=== PATIENT | female | born 1960 | race African-American/Black ===

== ENCOUNTER 2018-06-08 18:25 | Inpatient (IN) | payer MEDICARE, MEDICAID ==
[~2018-06-08] VITALS: Ht 172.7 cm; Wt 85.3 kg
[2018-06-08] MEDS ORDERED: SODIUM CHLORIDE 0.9% 1,000 ML IV ONE (18:50)
[2018-06-08] MEDS ORDERED: ONDANSETRON HCL 4MG/2ML INJ IV STA (18:50)
[2018-06-08] MEDS ORDERED: LORAZEPAM 2MG/ML CPJ ONE (18:58)
[2018-06-08] MEDS ORDERED: LORAZEPAM 2MG/ML CPJ IV ONE ×2 (19:00)
[2018-06-08] MEDS ORDERED: MORPHINE SULFATE 10 MG/ML CPJ IV ONE (19:45)
[2018-06-08] MEDS ORDERED: ONDANSETRON HCL 4MG/2ML INJ IV ONE (19:45)
[2018-06-08] MEDS ORDERED: LEVETIRACETAM 500MG PREMIX 100 ML IV ONE (19:45)
[2018-06-08 20:16] LABS: BASOPHILS % 0.3 % (0.0-2.0); EOSINOPHILS % 0.2 % (0.0-5.0); HEMOGLOBIN. 13.1 g/dL (12.0-16.0); LYMPHOCYTES % 42.2 % (20.0-50.0); MEAN CORPUSCULAR HEMOGLOBIN 31.8 pg (28.0-32.0); MEAN CORPUSCULAR VOLUME 94.9 fL (81.0-99.0); MEAN PLATELET VOLUME 10.6 fl (7.4-10.4); MONOCYTES % 13.5 % (2.0-8.0); NEUTROPHILS % 43.8 % (40.0-76.0); PLATELET 239 x1000/uL (130-400); RED BLOOD CELL COUNT 4.11 mill/uL (4.2-5.4); RED CELL DISTRIBUTION WIDTH 12.9 % (11.6-14.6)
[2018-06-08 20:19] LABS: CHLORIDE 111 mEq/L (98-107)
[2018-06-08 20:24] LABS: ETHANOL BLOOD < 10 mg/dL
[2018-06-08 20:28] LABS: CREATINE KINASE 43 IU/L (26-192)
[2018-06-08 20:35] LABS: CARBAMAZEPINE < 0.5 ug/mL (4-12); PHENOBARBITAL < 2.1 ug/mL (15.0-40.0); VALPROIC ACID < 3.0 ug/mL (50-100)
[2018-06-08 21:41] LABS: CLARITY URINE CLEAR (CLEAR); COLOR URINE YELLOW (YELLOW); KETONES URINE TRACE (NEGATIVE); LEUKOCYTE ESTERASE URINE NEGATIVE (NEGATIVE); NITRITE URINE NEGATIVE (NEGATIVE); OCCULT BLOOD URINE NEGATIVE (NEGATIVE); PH URINE 5.5 (4.5-8.0); PROTEIN URINE NEGATIVE (NEGATIVE); SPECIFIC GRAVITY URINE 1.048 (1.005-1.030)
[2018-06-08] MEDS ORDERED: POTASSIUM CHLORIDE 20MEQ/PACKET PO ONE (21:45)
[2018-06-08 21:58] LABS: *BARBITURATES SCREEN URINE NEGATIVE (NEGATIVE); *BENZODIAZEPINES SCREEN URINE NEGATIVE (NEGATIVE); *COCAINE SCREEN URINE NEGATIVE (NEGATIVE); METHADONE URINE SCREEN NEGATIVE (NEGATIVE); OPIATES URINE SCREEN NEGATIVE (NEGATIVE)
[2018-06-08 21:59] LABS: *AMPHETAMINES SCREEN URINE NEGATIVE (NEGATIVE); CANNABINOID URINE SCREEN NEGATIVE (NEGATIVE); PHENCYCLIDINE URINE SCREEN NEGATIVE (NEGATIVE)
[2018-06-09] MEDS ORDERED: IPRATROPIUM/ALBUTEROL 0.5-3(2.5)MG/3ML NEB INH PRN
[2018-06-09] MEDS ORDERED: DOCUSATE SODIUM 100MG CAPSULE PO PRN
[2018-06-09] MEDS ORDERED: ONDANSETRON HCL 4MG/2ML INJ IV PRN
[2018-06-09] MEDS ORDERED: HYDROCODONE/ACETAMINOPHEN 5/325MG TABLET PO PRN
[2018-06-09] MEDS ORDERED: ACETAMINOPHEN 325MG TABLET PO PRN
[2018-06-09] MEDS ORDERED: MAGNESIUM/ALUMINUM HYDROXIDE/SIMETHICONE 30ML UDC PO PRN
[2018-06-09] MEDS ORDERED: CLONIDINE 0.1MG TABLET PO PRN
[2018-06-09 00:19] LABS: CHLORIDE 111 mEq/L (98-107)
[2018-06-09] MEDS: SODIUM CHLORIDE 0.9% 1,000 ML IV SCH ×2 (00:28→13:59)
[2018-06-09] MEDS: LORAZEPAM 2MG/ML CPJ IV PRN ×3 (03:47→23:22)
[2018-06-09 05:53] LABS: BASOPHILS % 0.6 % (0.0-2.0); EOSINOPHILS % 0.2 % (0.0-5.0); HEMATOCRIT. 37.2 % (36.0-48.0); HEMOGLOBIN. 12.5 g/dL (12.0-16.0); MEAN CORPUSCULAR VOLUME 95.4 fL (81.0-99.0); MEAN PLATELET VOLUME 10.4 fl (7.4-10.4); MONOCYTES % 10.9 % (2.0-8.0); NEUTROPHILS % 50.3 % (40.0-76.0); PLATELET 208 x1000/uL (130-400); RED BLOOD CELL COUNT 3.89 mill/uL (4.2-5.4); RED CELL DISTRIBUTION WIDTH 12.8 % (11.6-14.6)
[2018-06-09 06:07] LABS: LDL CHOLESTEROL 85 mg/dL (5-100)
[2018-06-09 06:08] LABS: CREATINE KINASE 37 IU/L (26-192)
[2018-06-09 06:09] LABS: HDL CHOLESTEROL 81 mg/dL (40-59)
[2018-06-09 06:11] LABS: CREATINE KINASE MB FRACTION < 1.0 ng/mL (0.5-3.6)
[2018-06-09] MEDS ORDERED: LEVETIRACETAM 500MG TABLET PO SCH ×2 (09:00→21:00)
[2018-06-09] MEDS: ENOXAPARIN 40MG/0.4ML SYR SUBCUT SCH (10:00)
[2018-06-09 12:34] VITALS: BP 142/85
[2018-06-09] MEDS ORDERED: DEXTROSE 50% WATER 50ML SYRINGE IV PRN (12:45)
[2018-06-09 12:46] VITALS: BP 142/85
[2018-06-09] MEDS: BLOOD SUGAR DIAGNOSTIC STRIP TEST SCH ×3 (14:21→20:36)
[2018-06-09] MEDS: INSULIN LISPRO 100 UNITS/ML SUBCUT SCH ×3 (14:28→20:53)
[2018-06-09] MEDS ORDERED: OMEP20CA10 MT (15:31)
[2018-06-09] MEDS ORDERED: LEVE750T52 MT (15:31)
[2018-06-09 15:43] LABS: CREATINE KINASE 45 IU/L (26-192); CREATINE KINASE MB FRACTION < 1.0 ng/mL (0.5-3.6)
[2018-06-09 16:31] VITALS: BP 122/62
[2018-06-09] MEDS ORDERED: FOSPHENYTOIN SODIUM 1,000 MG in SODIUM CHLORIDE 0.9% 50 ML IJ NR (18:00)
[2018-06-09 20:38] VITALS: BP 115/52
[2018-06-09] MEDS: LEVETIRACETAM 500MG TABLET PO SCH (20:50)
[2018-06-10] VITALS (15 sets, daily range): BP systolic 112–178; BP diastolic 57–89
[2018-06-10] MEDS: SODIUM CHLORIDE 0.9% 1,000 ML IV SCH (02:37)
[2018-06-10 06:39] LABS: BASOPHILS % 0.4 % (0.0-2.0); EOSINOPHILS % 0.3 % (0.0-5.0); HEMATOCRIT. 38.3 % (36.0-48.0); HEMOGLOBIN. 12.9 g/dL (12.0-16.0); LYMPHOCYTES % 36.1 % (20.0-50.0); MEAN CORPUSCULAR HEMOGLOBIN 32.1 pg (28.0-32.0); MEAN CORPUSCULAR VOLUME 95.3 fL (81.0-99.0); MEAN PLATELET VOLUME 10.8 fl (7.4-10.4); MONOCYTES % 10.1 % (2.0-8.0); NEUTROPHILS % 53.1 % (40.0-76.0); PLATELET 234 x1000/uL (130-400); RED BLOOD CELL COUNT 4.02 mill/uL (4.2-5.4); RED CELL DISTRIBUTION WIDTH 12.7 % (11.6-14.6)
[2018-06-10 07:28] LABS: CHLORIDE 108 mEq/L (98-107)
[2018-06-10] MEDS: BLOOD SUGAR DIAGNOSTIC STRIP TEST SCH ×3 (07:30→21:00)
[2018-06-10] MEDS: INSULIN LISPRO 100 UNITS/ML SUBCUT SCH ×3 (09:04→20:59)
[2018-06-10] MEDS: LEVETIRACETAM 500MG TABLET PO SCH ×2 (09:11→20:51)
[2018-06-10] MEDS: ENOXAPARIN 40MG/0.4ML SYR SUBCUT SCH (09:12)
[2018-06-10] MEDS: LORAZEPAM 2MG/ML CPJ IV PRN (14:52)
[2018-06-10] MEDS ORDERED: METF-414 MT (15:48)
[2018-06-10] MEDS ORDERED: KEPP500 PO (15:48)
[2018-06-10] MEDS ORDERED: PHEN100C4 PO (15:48)
[2018-06-10] MEDS ORDERED: PHENYTOIN SODIUM EXTENDED 100MG CAPSULE PO SCH (21:00)
[2018-06-10] MEDS: INSULIN GLARGINE UD 100 UNITS/ML SYR SUBCUT SCH (21:00)
[2018-06-11 08:26] VITALS: BP 130/85
[2018-06-11] MEDS: BLOOD SUGAR DIAGNOSTIC STRIP TEST SCH ×2 (08:27→11:57)
[2018-06-11] MEDS: INSULIN LISPRO 100 UNITS/ML SUBCUT SCH ×2 (08:32→12:01)
[2018-06-11] MEDS: LEVETIRACETAM 500MG TABLET PO SCH (08:32)
[2018-06-11 11:01] VITALS: BP 130/85
[2018-06-11] MEDS: INSULIN GLARGINE UD 100 UNITS/ML SYR SUBCUT SCH (12:01)
[2018-06-11] MEDS ORDERED: DEXTL MT (13:37)
== END 2018-06-11 12:18 | disposition home or self-care (01) | DRG 101 ==
LOC: ER 18:25 → 6WST 06-09 08:28 → EDBEDREQ 06-09 08:30 → EDBEDREQTM 06-09 08:30 → CANRESERV 06-09 09:59 → ENRESERV 06-09 10:09 → 5EST 06-09 23:45
PROVIDERS: ADMIT Internal Medicine; ATTEND Internal Medicine
PROC: 4A10X4Z Monitoring of Central Nervous Electrical Activity, External Approach (ICD-10-PCS; principal; 2018-06-10)
DX: G40.909 Epilepsy, unspecified, not intractable, without status epilepticus (principal); I10 Essential (primary) hypertension; E11.65 Type 2 diabetes mellitus with hyperglycemia; E78.00 Pure hypercholesterolemia, unspecified; E78.5 Hyperlipidemia, unspecified; Z91.14 Patient's other noncompliance with medication regimen; Z79.4 Long term (current) use of insulin; Z91.19 Patient's noncompliance with other medical treatment and regimen; Z88.6 Allergy status to analgesic agent; Z88.0 Allergy status to penicillin
CPT/HCPCS: 36415; 70551; 71045; 80048; 80061; 80156; 80165; 80184; 80185; 80305; 82550; 82553; 82962; 83036; 83735; 84443; 84484; 93005; 93970; 96365; 96375; 99285; C1893; G0482; J1650; J1815; J1953; J2060; J2270; J2405; J7030; J7620

== ENCOUNTER 2018-07-14 12:54 | Emergency (ER) | payer MEDICARE, MEDICAID ==
[~2018-07-14] VITALS: Ht 162.6 cm; Wt 68.5 kg
[~2018-07-14 12:54] MED LIST: DEXTL MT; KEPP500 PO; METF-414 MT; OMEP20CA10 MT; PHEN100C4 PO
[2018-07-14] MEDS ORDERED: SODIUM CHLORIDE 0.9% 1,000 ML IV ONE ×2 (13:05→15:00)
[2018-07-14] MEDS ORDERED: LEVETIRACETAM 1000MG/100ML 100 ML IV ONE (13:15)
[2018-07-14 14:25] LABS: BASOPHILS % 0.5 % (0.0-2.0); HEMATOCRIT. 50.1 % (36.0-48.0); HEMOGLOBIN. 16.5 g/dL (12.0-16.0); LYMPHOCYTES % 20.5 % (20.0-50.0); MEAN CORPUSCULAR HEMOGLOBIN 31.1 pg (28.0-32.0); MEAN CORPUSCULAR VOLUME 94.1 fL (81.0-99.0); MONOCYTES % 9.4 % (2.0-8.0); NEUTROPHILS % 69.6 % (40.0-76.0); PLATELET 213 x1000/uL (130-400); RED BLOOD CELL COUNT 5.32 mill/uL (4.2-5.4); RED CELL DISTRIBUTION WIDTH 12.1 % (11.6-14.6)
[2018-07-14 14:29] LABS: CHLORIDE 101 mEq/L (98-107)
[2018-07-14 14:32] LABS: ETHANOL BLOOD < 10 mg/dL
[2018-07-14] MEDS ORDERED: SODIUM CHLORIDE 0.9% 1,000 ML IV NR (16:00)
[2018-07-14 18:30] VITALS: BP 125/75
[2018-07-14 18:48] LABS: CLARITY URINE CLEAR (CLEAR); COLOR URINE YELLOW (YELLOW); KETONES URINE 3+ (NEGATIVE); LEUKOCYTE ESTERASE URINE NEGATIVE (NEGATIVE); NITRITE URINE NEGATIVE (NEGATIVE); OCCULT BLOOD URINE NEGATIVE (NEGATIVE); PH URINE 5.5 (4.5-8.0); PROTEIN URINE NEGATIVE (NEGATIVE); SPECIFIC GRAVITY URINE 1.044 (1.005-1.030); UROBILINOGEN URINE 0.2 E.U./dL (0.2-1.0)
[2018-07-14 19:00] LABS: *AMPHETAMINES SCREEN URINE NEGATIVE (NEGATIVE); *BARBITURATES SCREEN URINE NEGATIVE (NEGATIVE); *BENZODIAZEPINES SCREEN URINE NEGATIVE (NEGATIVE); *COCAINE SCREEN URINE NEGATIVE (NEGATIVE)
[2018-07-14 19:01] LABS: CANNABINOID URINE SCREEN NEGATIVE (NEGATIVE); METHADONE URINE SCREEN NEGATIVE (NEGATIVE); OPIATES URINE SCREEN NEGATIVE (NEGATIVE); PHENCYCLIDINE URINE SCREEN NEGATIVE (NEGATIVE)
== END 2018-07-14 19:17 | disposition home or self-care (01) ==
LOC: ER 13:34
DX: R56.9 Unspecified convulsions (principal); J06.9 Acute upper respiratory infection, unspecified; R51 Headache; Z79.899 Other long term (current) drug therapy; Z88.6 Allergy status to analgesic agent; Z79.84 Long term (current) use of oral hypoglycemic drugs; Z59.0 Homelessness
CPT/HCPCS: 36415; 70450; 80053; 80305; 81003; 82962; 85025; 96365; 99284; G0482; J1953; J7030

== ENCOUNTER 2020-07-02 09:26 | Inpatient (IN) | payer MEDICARE, MEDICAID ==
[~2020-07-02] VITALS: Ht 162.6 cm; Wt 84.4 kg
[~2020-07-02 09:26] MED LIST changes: -OMEP20CA10 MT; +OMEP20CA14 MT
[2020-07-02] MEDS ORDERED: SODIUM CHLORIDE 0.9% 1,000 ML IV ONE ×2 (10:30)
[2020-07-02 10:39] LABS: CLARITY URINE CLEAR (CLEAR); COLOR URINE YELLOW (YELLOW); KETONES URINE 1+ (NEGATIVE); LEUKOCYTE ESTERASE URINE NEGATIVE (NEGATIVE); NITRITE URINE NEGATIVE (NEGATIVE); OCCULT BLOOD URINE NEGATIVE (NEGATIVE); PH URINE 5.5 (4.5-8.0); PROTEIN URINE NEGATIVE (NEGATIVE); SPECIFIC GRAVITY URINE 1.028 (1.005-1.030); UROBILINOGEN URINE 0.2 E.U./dL (0.2-1.0)
[2020-07-02 10:52] LABS: BASOPHILS % 1.1 % (0.0-2.0); CHLORIDE 103 mEq/L (98-107); EOSINOPHILS % 0.1 % (0.0-5.0); HEMATOCRIT. 44.6 % (36.0-48.0); LYMPHOCYTES % 34.6 % (20.0-50.0); MEAN CORPUSCULAR HEMOGLOBIN 30.6 pg (28.0-32.0); MEAN CORPUSCULAR VOLUME 91.1 fL (81.0-99.0); MEAN PLATELET VOLUME 11.6 fl (7.4-10.4); NEUTROPHILS % 53.2 % (40.0-76.0); PLATELET 218 x1000/uL (130-400); RED CELL DISTRIBUTION WIDTH 12.5 % (11.6-14.6)
[2020-07-02 10:54] LABS: PROTHROMBIN TIME 10.6 sec (9.6-11.0)
[2020-07-02 11:02] LABS: BETA HYDROXYBUTYRATE 0.3 mMol/L (0.0-0.3)
[2020-07-02] MEDS ORDERED: ONDANSETRON HCL 4MG/2ML INJ IV STA (12:06)
[2020-07-02] MEDS ORDERED: MORPHINE SULFATE 4 MG/ML CPJ (NOT FOR IM USE) IV STA (12:06)
[2020-07-02] MEDS ORDERED: DEXTROSE 5% WATER 1,000 ML IV ONE (12:30)
[2020-07-02] MEDS ORDERED: LORAZEPAM 0.5MG TABLET PO PRN (19:15)
[2020-07-02] MEDS ORDERED: IPRATROPIUM/ALBUTEROL 0.5-3(2.5)MG/3ML NEB HHN PRN (19:15)
[2020-07-02] MEDS ORDERED: CLONIDINE 0.1MG TABLET PO PRN (19:15)
[2020-07-02] MEDS ORDERED: ACETAMINOPHEN 325MG TABLET PO PRN (19:15)
[2020-07-02] MEDS ORDERED: DOCUSATE SODIUM 100MG CAPSULE PO PRN (19:15)
[2020-07-02] MEDS: SODIUM CHLORIDE 0.9% 1,000 ML IV SCH (19:30)
[2020-07-02 22:15] VITALS: BP 134/62
[2020-07-02] MEDS: HYDROCODONE/ACETAMINOPHEN 5/325MG TABLET PO PRN (23:45)
[2020-07-03 04:00] VITALS: BP 133/69
[2020-07-03] MEDS: HYDROCODONE/ACETAMINOPHEN 5/325MG TABLET PO PRN ×2 (05:36→12:08)
[2020-07-03] MEDS: SODIUM CHLORIDE 0.9% 1,000 ML IV SCH ×2 (05:44→22:13)
[2020-07-03] MEDS ORDERED: DEXTROSE 50% WATER 50ML SYRINGE IV PRN (07:15)
[2020-07-03] MEDS: INSULIN LISPRO 100 UNITS/ML SUBCUT SCH ×4 (07:22→22:15)
[2020-07-03] MEDS: BLOOD SUGAR DIAGNOSTIC STRIP TEST SCH ×4 (07:27→21:00)
[2020-07-03 07:57] LABS: CHLORIDE 106 mEq/L (98-107)
[2020-07-03 07:59] LABS: BASOPHILS % 0.4 % (0.0-2.0); HEMATOCRIT. 42.1 % (36.0-48.0); HEMOGLOBIN. 14.2 g/dL (12.0-16.0); LYMPHOCYTES % 34.8 % (20.0-50.0); MEAN CORPUSCULAR HEMOGLOBIN 30.7 pg (28.0-32.0); MEAN CORPUSCULAR VOLUME 91.2 fL (81.0-99.0); MEAN PLATELET VOLUME 12.2 fl (7.4-10.4); MONOCYTES % 10.8 % (2.0-8.0); PLATELET 205 x1000/uL (130-400); RED BLOOD CELL COUNT 4.61 mill/uL (4.2-5.4); RED CELL DISTRIBUTION WIDTH 12.4 % (11.6-14.6)
[2020-07-03 08:00] VITALS: BP 123/63
[2020-07-03] MEDS ORDERED: LEVETIRACETAM 500MG TABLET PO SCH (08:00)
[2020-07-03 08:10] LABS: AMYLASE 115 IU/L (25-115)
[2020-07-03] MEDS ORDERED: KCL 20MEQ/100ML PREMIX 100 ML IV ONE (09:00)
[2020-07-03] MEDS ORDERED: KCL 20MEQ/100ML PREMIX 100 ML IV SCH (09:45)
[2020-07-03] MEDS: KCL 20MEQ/100ML PREMIX 100 ML IV SCH ×2 (11:00→12:07)
[2020-07-03 12:00] VITALS: BP 115/59
[2020-07-03] MEDS ORDERED: POTASSIUM CHLORIDE 20MEQ TABLET SR PO NR (13:15)
[2020-07-03 16:00] VITALS: BP 137/70
[2020-07-03] MEDS: OMEPRAZOLE 20MG CAPSULE EXTENDED RELEASE PO SCH (17:30)
[2020-07-03 20:00] VITALS: BP 127/72
[2020-07-03] MEDS: PHENYTOIN SODIUM EXTENDED 100MG CAPSULE PO SCH ×2 (21:00→22:12)
[2020-07-03] MEDS: LEVETIRACETAM 250MG TABLET PO SCH (22:13)
[2020-07-03] MEDS ORDERED: VENL150C52 PO (22:33)
[2020-07-04] VITALS: BP 129/74
[2020-07-04 04:00] VITALS: BP_SYST 101; BP_SYST 118; BP_SYST 125; BP_DIAS 62; BP_DIAS 67; BP_DIAS 72
[2020-07-04] MEDS: SODIUM CHLORIDE 0.9% 1,000 ML IV SCH ×2 (04:51→15:58)
[2020-07-04] MEDS: HYDROCODONE/ACETAMINOPHEN 5/325MG TABLET PO PRN ×2 (06:57→21:15)
[2020-07-04] MEDS: BLOOD SUGAR DIAGNOSTIC STRIP TEST SCH ×4 (06:57→21:00)
[2020-07-04] MEDS: INSULIN LISPRO 100 UNITS/ML SUBCUT SCH ×4 (07:01→21:36)
[2020-07-04 07:35] LABS: BASOPHILS % 0.5 % (0.0-2.0); HEMATOCRIT. 42.3 % (36.0-48.0); HEMOGLOBIN. 13.8 g/dL (12.0-16.0); LYMPHOCYTES % 39.2 % (20.0-50.0); MEAN CORPUSCULAR HEMOGLOBIN 30.3 pg (28.0-32.0); MEAN PLATELET VOLUME 12.6 fl (7.4-10.4); MONOCYTES % 10.7 % (2.0-8.0); NEUTROPHILS % 49.6 % (40.0-76.0); PLATELET 186 x1000/uL (130-400); RED BLOOD CELL COUNT 4.55 mill/uL (4.2-5.4); RED CELL DISTRIBUTION WIDTH 12.4 % (11.6-14.6)
[2020-07-04 07:36] LABS: CHLORIDE 108 mEq/L (98-107)
[2020-07-04 07:44] LABS: LDL CHOLESTEROL 111 mg/dL (5-100)
[2020-07-04 07:46] LABS: HDL CHOLESTEROL 66 mg/dL (40-59)
[2020-07-04 08:00] VITALS: BP 120/86
[2020-07-04] MEDS: OMEPRAZOLE 20MG CAPSULE EXTENDED RELEASE PO SCH (09:38)
[2020-07-04] MEDS: LEVETIRACETAM 250MG TABLET PO SCH ×2 (09:38→21:00)
[2020-07-04] MEDS: VENLAFAXINE HCL 37.5MG SR CAPSULE 24HR PO SCH (17:50)
[2020-07-04 20:00] VITALS: BP 121/71
[2020-07-04] MEDS: PHENYTOIN SODIUM EXTENDED 100MG CAPSULE PO SCH (21:00)
[2020-07-04] MEDS: ONDANSETRON HCL 4MG/2ML INJ IV PRN (21:15)
[2020-07-05] VITALS: BP 136/68
[2020-07-05] MEDS: SODIUM CHLORIDE 0.9% 1,000 ML IV SCH ×2 (03:05→11:12)
[2020-07-05 04:00] VITALS: BP 134/61
[2020-07-05] MEDS: BLOOD SUGAR DIAGNOSTIC STRIP TEST SCH ×4 (06:45→21:05)
[2020-07-05] MEDS: INSULIN LISPRO 100 UNITS/ML SUBCUT SCH ×5 (07:15→21:05)
[2020-07-05 08:00] VITALS: BP 126/68
[2020-07-05] MEDS: OMEPRAZOLE 20MG CAPSULE EXTENDED RELEASE PO SCH (09:16)
[2020-07-05] MEDS: VENLAFAXINE HCL 37.5MG SR CAPSULE 24HR PO SCH (09:16)
[2020-07-05] MEDS: LEVETIRACETAM 250MG TABLET PO SCH ×2 (09:16→20:37)
[2020-07-05 12:00] VITALS: BP 128/80
[2020-07-05] MEDS: ONDANSETRON HCL 4MG/2ML INJ IV PRN (13:46)
[2020-07-05] MEDS: HYDROCODONE/ACETAMINOPHEN 5/325MG TABLET PO PRN (13:47)
[2020-07-05 16:00] VITALS: BP_SYST 113; BP_SYST 130; BP_SYST 136; BP_DIAS 70; BP_DIAS 79; BP_DIAS 83
[2020-07-05] MEDS ORDERED: PHENYTOIN SODIUM 1,000 MG in SODIUM CHLORIDE 0.9% 80 ML IV NR (18:30)
[2020-07-05 20:00] VITALS: BP 138/64
[2020-07-05] MEDS: PHENYTOIN SODIUM EXTENDED 100MG CAPSULE PO SCH (20:37)
[2020-07-06] VITALS: BP 127/64
[2020-07-06 04:00] VITALS: BP 128/66
[2020-07-06] MEDS: BLOOD SUGAR DIAGNOSTIC STRIP TEST SCH ×3 (05:50→17:18)
[2020-07-06] MEDS: INSULIN LISPRO 100 UNITS/ML SUBCUT SCH ×3 (05:57→17:22)
[2020-07-06 06:24] LABS: BASOPHILS % 0.4 % (0.0-2.0); HEMATOCRIT. 41.6 % (36.0-48.0); HEMOGLOBIN. 14.3 g/dL (12.0-16.0); LYMPHOCYTES % 37.3 % (20.0-50.0); MEAN CORPUSCULAR HEMOGLOBIN 31.4 pg (28.0-32.0); MEAN CORPUSCULAR VOLUME 91.3 fL (81.0-99.0); MEAN PLATELET VOLUME 11.9 fl (7.4-10.4); MONOCYTES % 11.4 % (2.0-8.0); NEUTROPHILS % 50.9 % (40.0-76.0); PLATELET 208 x1000/uL (130-400); RED BLOOD CELL COUNT 4.56 mill/uL (4.2-5.4); RED CELL DISTRIBUTION WIDTH 12.1 % (11.6-14.6)
[2020-07-06 06:32] LABS: CHLORIDE 107 mEq/L (98-107)
[2020-07-06 08:00] VITALS: BP 108/53
[2020-07-06] MEDS: VENLAFAXINE HCL 37.5MG SR CAPSULE 24HR PO SCH (08:54)
[2020-07-06] MEDS: LEVETIRACETAM 250MG TABLET PO SCH (08:55)
[2020-07-06] MEDS: OMEPRAZOLE 20MG CAPSULE EXTENDED RELEASE PO SCH (08:55)
[2020-07-06] MEDS: HYDROCODONE/ACETAMINOPHEN 5/325MG TABLET PO PRN (08:56)
[2020-07-06 12:00] VITALS: BP 133/62
[2020-07-06 16:00] VITALS: BP 131/84
[2020-07-06 16:23] VITALS: BP 133/82
== END 2020-07-06 17:58 | disposition home or self-care (01) | DRG 73 ==
LOC: ER 09:45 → 6EST 14:25 → EDBEDREQ 14:35 → EDBEDREQSVC 14:35 → EDBEDREQTM 14:35 → ENRESERV 19:47 → 5WST 07-03 19:00
PROVIDERS: ADMIT Internal Medicine; ATTEND Internal Medicine
DX: G90.8 Other disorders of autonomic nervous system (principal); K85.90 Acute pancreatitis without necrosis or infection, unspecified; E11.65 Type 2 diabetes mellitus with hyperglycemia; E87.6 Hypokalemia; E66.9 Obesity, unspecified; F41.9 Anxiety disorder, unspecified; G40.909 Epilepsy, unspecified, not intractable, without status epilepticus; G89.29 Other chronic pain; I10 Essential (primary) hypertension; J45.909 Unspecified asthma, uncomplicated; K21.9 Gastro-esophageal reflux disease without esophagitis; M47.812 Spondylosis without myelopathy or radiculopathy, cervical region; M50.21 Other cervical disc displacement, high cervical region; M48.02 Spinal stenosis, cervical region; R26.89 Other abnormalities of gait and mobility; R20.0 Anesthesia of skin; Z90.49 Acquired absence of other specified parts of digestive tract; Z90.710 Acquired absence of both cervix and uterus; Z88.8 Allergy status to other drugs, medicaments and biological substances; Z79.84 Long term (current) use of oral hypoglycemic drugs; Z79.899 Other long term (current) drug therapy; Z68.31 Body mass index [BMI] 31.0-31.9, adult; Z91.14 Patient's other noncompliance with medication regimen
CPT/HCPCS: 36415; 70551; 71045; 72050; 72141; 72148; 76700; 80048; 80053; 80061; 80185; 80320; 81003; 82010; 82150; 82542; 82962; 83036; 83605; 84443; 84484; 85025; 86850; 86900; 93005; 93306; 93880; 97116; 97162; 99285; J1165; J1815; J2270; J2405; J3480; J7030; J7050; J7070; G0480

== ENCOUNTER 2021-09-29 09:24 | Inpatient (IN) | payer MEDICARE ==
[~2021-09-29] VITALS: Ht 157.5 cm; Wt 78.0 kg
[~2021-09-29 09:24] MED LIST changes: +VENL150C52 PO
[2021-09-29 09:57] LABS: BASOPHILS % 0.6 % (0.0-2.0); HEMATOCRIT. 45.6 % (36.0-48.0); HEMOGLOBIN. 15.3 g/dL (12.0-16.0); LYMPHOCYTES % 7.8 % (20.0-50.0); MEAN CORPUSCULAR HEMOGLOBIN 31.1 pg (28.0-32.0); MEAN CORPUSCULAR VOLUME 92.6 fL (81.0-99.0); NEUTROPHILS % 77.6 % (40.0-76.0); PLATELET 217 x1000/uL (130-400); RED BLOOD CELL COUNT 4.92 mill/uL (4.2-5.4); RED CELL DISTRIBUTION WIDTH 12.8 % (11.6-14.6)
[2021-09-29 10:07] LABS: CHLORIDE 103 mEq/L (98-107)
[2021-09-29 10:10] LABS: ETHANOL BLOOD < 10 mg/dL
[2021-09-29] MEDS ORDERED: FAMOTIDINE 20MG/2ML VIAL IV STA (11:50)
[2021-09-29] MEDS ORDERED: SODIUM CHLORIDE 0.9% 1,000 ML IV ONE (12:00)
[2021-09-29 12:38] LABS: *AMPHETAMINES SCREEN URINE NEGATIVE (NEGATIVE); *BARBITURATES SCREEN URINE NEGATIVE (NEGATIVE); *BENZODIAZEPINES SCREEN URINE NEGATIVE (NEGATIVE); *COCAINE SCREEN URINE NEGATIVE (NEGATIVE)
[2021-09-29 12:39] LABS: CANNABINOID URINE SCREEN PRESUMTIVE POSITIVE (NEGATIVE); METHADONE URINE SCREEN NEGATIVE (NEGATIVE); OPIATES URINE SCREEN NEGATIVE (NEGATIVE); PHENCYCLIDINE URINE SCREEN PRESUMTIVE POSITIVE (NEGATIVE)
[2021-09-29 17:00] VITALS: BP 156/75
[2021-09-29 20:00] VITALS: BP 152/65
[2021-09-29] MEDS ORDERED: NALOXONE HCL 0.4MG/ML VIAL IV PRN (20:45)
[2021-09-29 21:00] VITALS: BP 142/67
[2021-09-29] MEDS ORDERED: DEXTROSE 50% WATER 50ML SYRINGE IV PRN (21:30)
[2021-09-29] MEDS ORDERED: GUAIFENESIN 200MG/10ML SUGAR FREE UDC PO PRN (21:30)
[2021-09-29] MEDS: BLOOD SUGAR DIAGNOSTIC STRIP TEST SCH (21:43)
[2021-09-29] MEDS: FAMOTIDINE 20MG/2ML VIAL IV SCH (21:44)
[2021-09-29] MEDS: LEVETIRACETAM 500MG TABLET PO SCH (21:44)
[2021-09-29] MEDS: MORPHINE SULFATE 2 MG/ML CPJ (NOT FOR IM USE) IV PRN (21:46)
[2021-09-29] MEDS: INSULIN LISPRO 100 UNITS/ML SUBCUT SCH (21:46)
[2021-09-29] MEDS: SODIUM CHLORIDE 0.45% 1,000 ML IV SCH (21:47)
[2021-09-29] MEDS: ACETAMINOPHEN 325MG TABLET PO PRN (23:44)
[2021-09-29 23:45] VITALS: BP 140/60
[2021-09-29] MEDS ORDERED: ACETAMINOPHEN 325MG TABLET PO PRN (23:45)
[2021-09-30 04:00] VITALS: BP 127/67
[2021-09-30] MEDS: BLOOD SUGAR DIAGNOSTIC STRIP TEST SCH ×4 (05:41→21:07)
[2021-09-30] MEDS: SODIUM CHLORIDE 0.45% 1,000 ML IV SCH (05:41)
[2021-09-30] MEDS: FAMOTIDINE 20MG/2ML VIAL IV SCH ×2 (07:50→21:06)
[2021-09-30] MEDS: LEVETIRACETAM 500MG TABLET PO SCH ×2 (07:50→21:05)
[2021-09-30] MEDS: INSULIN LISPRO 100 UNITS/ML SUBCUT SCH ×4 (07:51→21:07)
[2021-09-30 08:00] VITALS: BP 110/55
[2021-09-30 11:56] VITALS: BP 111/63
[2021-09-30] MEDS: MORPHINE SULFATE 2 MG/ML CPJ (NOT FOR IM USE) IV PRN ×2 (12:36→22:09)
[2021-09-30 12:56] LABS: HEMOGLOBIN. 13.9 g/dL (12.0-16.0); MEAN CORPUSCULAR HEMOGLOBIN 31.3 pg (28.0-32.0); MEAN CORPUSCULAR VOLUME 92.3 fL (81.0-99.0); MEAN PLATELET VOLUME 11.9 fl (7.4-10.4); PLATELET 188 x1000/uL (130-400); RED BLOOD CELL COUNT 4.44 mill/uL (4.2-5.4); RED CELL DISTRIBUTION WIDTH 12.6 % (11.6-14.6)
[2021-09-30 13:04] LABS: CHLORIDE 109 mEq/L (98-107)
[2021-09-30 14:01] LABS: PLATELET ESTIMATE NORMAL
[2021-09-30] MEDS ORDERED: POTASSIUM CHLORIDE 20MEQ TABLET SR PO NR (16:00)
[2021-09-30 16:50] VITALS: BP 95/59
[2021-09-30] MEDS: ACETAMINOPHEN 325MG TABLET PO PRN (16:57)
[2021-09-30 20:00] VITALS: BP 105/51
[2021-09-30] MEDS: LEVETIRACETAM 250MG TABLET PO SCH (21:05)
[2021-10-01] VITALS: BP 134/69
[2021-10-01] MEDS: ACETAMINOPHEN 325MG TABLET PO PRN (01:42)
[2021-10-01 04:00] VITALS: BP 131/63
[2021-10-01] MEDS: BLOOD SUGAR DIAGNOSTIC STRIP TEST SCH (06:16)
[2021-10-01 08:00] VITALS: BP 117/54
[2021-10-01] MEDS: LEVETIRACETAM 500MG TABLET PO SCH (08:04)
[2021-10-01] MEDS: LEVETIRACETAM 250MG TABLET PO SCH (08:04)
[2021-10-01] MEDS: INSULIN LISPRO 100 UNITS/ML SUBCUT SCH (08:06)
[2021-10-01] MEDS ORDERED: FAMOTIDINE 20MG TABLET PO SCH (09:00)
[2021-10-01 09:26] VITALS: BP 109/49
== END 2021-10-01 10:45 | disposition home or self-care (01) | DRG 73 ==
LOC: ER 09:38 → 8WST 13:53 → EDBEDREQ 13:58 → EDBEDREQTM 13:58 → ENRESERV 15:36 → 7WST 20:22
PROVIDERS: ADMIT Family Medicine; ATTEND Family Medicine
DX: G90.9 Disorder of the autonomic nervous system, unspecified (principal); U07.1 COVID-19; E86.0 Dehydration; F41.9 Anxiety disorder, unspecified; I10 Essential (primary) hypertension; J45.909 Unspecified asthma, uncomplicated; G35 Multiple sclerosis; K21.9 Gastro-esophageal reflux disease without esophagitis; F32.A Depression, unspecified; G40.909 Epilepsy, unspecified, not intractable, without status epilepticus; R19.7 Diarrhea, unspecified; E11.9 Type 2 diabetes mellitus without complications; Z82.49 Family history of ischemic heart disease and other diseases of the circulatory system; Z90.710 Acquired absence of both cervix and uterus; Z79.899 Other long term (current) drug therapy; G31.9 Degenerative disease of nervous system, unspecified
CPT/HCPCS: 36415; 71045; 76705; 80053; 80185; 80305; 80320; 82962; 83880; 84484; 85025; 87015; 87045; 87426; 87427; 87449; 93005; 99285; J1815; J2270; J3490; J7030; G0480

== ENCOUNTER 2022-03-09 19:36 | Emergency (ER) | payer MEDICARE, MEDICAID ==
[~2022-03-09] VITALS: Ht 167.6 cm; Wt 75.0 kg
[~2022-03-09 19:36] MED LIST changes: +INSU300I SQ; +SEMA2PEN SQ
[2022-03-09] MEDS ORDERED: SODIUM CHLORIDE 0.9% 1,000 ML IV ONE (21:30)
[2022-03-09 22:49] LABS: BASOPHILS % 0.5 % (0.0-2.0); HEMATOCRIT. 47.9 % (36.0-48.0); LYMPHOCYTES % 37.8 % (20.0-50.0); MEAN CORPUSCULAR VOLUME 92.9 fL (81.0-99.0); MEAN PLATELET VOLUME 10.4 fl (7.4-10.4); MONOCYTES % 8.2 % (2.0-8.0); NEUTROPHILS % 53.5 % (40.0-76.0); PLATELET 211 x1000/uL (130-400); RED BLOOD CELL COUNT 5.16 mill/uL (4.2-5.4); RED CELL DISTRIBUTION WIDTH 13.7 % (11.6-14.6)
[2022-03-09 22:57] LABS: CLARITY URINE CLEAR (CLEAR); COLOR URINE YELLOW (YELLOW); KETONES URINE 1+ (NEGATIVE); LEUKOCYTE ESTERASE URINE NEGATIVE (NEGATIVE); NITRITE URINE NEGATIVE (NEGATIVE); OCCULT BLOOD URINE NEGATIVE (NEGATIVE); PH URINE 5.5 (4.5-8.0); PROTEIN URINE NEGATIVE (NEGATIVE); SPECIFIC GRAVITY URINE 1.036 (1.005-1.030); UROBILINOGEN URINE 0.2 E.U./dL (0.2-1.0)
[2022-03-10 02:12] LABS: CHLORIDE 103 mEq/L (98-107)
[2022-03-10 02:22] LABS: BETA HYDROXYBUTYRATE 1.2 mMol/L (0.0-0.3)
[2022-03-10 03:25] VITALS: BP 120/63
== END 2022-03-10 03:32 | disposition left against medical advice (07) ==
LOC: ER 19:36 → CANBEDREQ 03-10 11:26
DX: R56.9 Unspecified convulsions (principal); F41.9 Anxiety disorder, unspecified; J45.909 Unspecified asthma, uncomplicated; E11.9 Type 2 diabetes mellitus without complications; I10 Essential (primary) hypertension; Z90.710 Acquired absence of both cervix and uterus
CPT/HCPCS: 36415; 70450; 71045; 80053; 81003; 82010; 82962; 83690; 83930; 84484; 85025; 93005; 96360; 96361; 99285; J7030

== ENCOUNTER 2023-05-20 13:02 | Emergency (ER) | payer OTHER, MEDICAID ==
[~2023-05-20] VITALS: Ht 167.6 cm; Wt 100.0 kg
[2023-05-20 13:15] VITALS: BP 135/86; RESP 18; TEMP 98.4; O2SAT 97
[2023-05-20 13:17] VITALS: PULSE 103
[2023-05-20] MEDS ORDERED: ACET-2708 MT (16:00)
== END 2023-05-20 16:43 | disposition home or self-care (01) ==
LOC: ER 13:02
DX: M79.605 Pain in left leg (principal); F41.9 Anxiety disorder, unspecified; J45.909 Unspecified asthma, uncomplicated; E11.9 Type 2 diabetes mellitus without complications; I10 Essential (primary) hypertension; Z90.710 Acquired absence of both cervix and uterus
CPT/HCPCS: 93971; 99284

== ENCOUNTER 2024-04-15 14:45 | Emergency (ER) | payer MEDICAID ==
[~2024-04-15] VITALS: Ht 170.2 cm; Wt 75.0 kg
[~2024-04-15 14:45] MED LIST changes: +AMLO5TAB88 MT; +ATOR20TA65 PO; +CYCL10TA21 PO; -DEXTL MT; +EMPA25TA PO; +GABA100C PO; +GLIP10TA10 PO; +HYDR-4009 PO; -INSU300I SQ; +KEPP500 MT; -KEPP500 PO; +LOSA25TA26 MT; +MAGN200T4 MT; -METF-414 MT; -OMEP20CA14 MT; +PANT40TA51 PO; -PHEN100C4 PO; -SEMA2PEN SQ
[2024-04-15 14:47] VITALS: O2SAT 99
[2024-04-15 16:16] LABS: BASOPHILS % 1.1 % (0.0-2.0); EOSINOPHILS % 0.1 % (0.0-5.0); HEMATOCRIT. 38.2 % (36.0-48.0); HEMOGLOBIN. 12.9 g/dL (12.0-16.0); LYMPHOCYTES % 24.3 % (20.0-50.0); MEAN CORPUSCULAR HEMOGLOBIN 32.2 pg (28.0-32.0); MEAN CORPUSCULAR HGB CONC 33.8 g/dL (31.0-37.0); MEAN CORPUSCULAR VOLUME 95.2 fL (81.0-99.0); MEAN PLATELET VOLUME 9.7 fl (7.4-10.4); MONOCYTES % 12.5 % (2.0-8.0); PLATELET 375 x1000/uL (130-400); RED BLOOD CELL COUNT 4.01 mill/uL (4.2-5.4); RED CELL DISTRIBUTION WIDTH 12.6 % (11.6-14.6); WHITE BLOOD COUNT 7.9 x1000/uL (4.5-11.0)
[2024-04-15 16:19] LABS: CHLORIDE 104 mEq/L (98-107); SODIUM 138 mEq/L (136-145)
[2024-04-15 16:20] LABS: CALCIUM 9.3 mg/dL (8.7-10.4); CARBON DIOXIDE 29 mEq/L (21-32)
[2024-04-15 16:25] LABS: CREATININE 0.7 mg/dL (0.6-1.0); GLUCOSE 232 mg/dL (70-105); PROTHROMBIN TIME 10.7 sec (9.6-11.0); UREA NITROGEN BLOOD 17 mg/dL (9-23)
[2024-04-15 16:32] LABS: ETHANOL BLOOD < 10 mg/dL (<10)
[2024-04-15 16:39] LABS: CLARITY URINE CLOUDY (CLEAR); COLOR URINE YELLOW (YELLOW); GLUCOSE URINE 1+ (NEGATIVE); KETONES URINE NEGATIVE (NEGATIVE); LEUKOCYTE ESTERASE URINE 2+ (NEGATIVE); NITRITE URINE NEGATIVE (NEGATIVE); OCCULT BLOOD URINE NEGATIVE (NEGATIVE); PH URINE 6.5 (4.5-8.0); PROTEIN URINE NEGATIVE (NEGATIVE); SPECIFIC GRAVITY URINE 1.029 (1.005-1.030)
[2024-04-15 16:47] LABS: *AMPHETAMINES SCREEN URINE NEGATIVE (NEGATIVE); *BARBITURATES SCREEN URINE NEGATIVE (NEGATIVE); *BENZODIAZEPINES SCREEN URINE NEGATIVE (NEGATIVE); *COCAINE SCREEN URINE NEGATIVE (NEGATIVE); CANNABINOID URINE SCREEN PRESUMPTIVE POSITIVE (NEGATIVE); ECSTASY MDMA SCREEN URINE NEGATIVE (NEGATIVE); METHADONE URINE SCREEN NEGATIVE (NEGATIVE); OPIATES URINE SCREEN NEGATIVE (NEGATIVE); PHENCYCLIDINE URINE SCREEN NEGATIVE (NEGATIVE)
[2024-04-15] MEDS: HYDROCODONE/ACETAMINOPHEN 5/325MG TABLET PO ONE (17:00)
[2024-04-15 17:30] VITALS: TEMP 36.66960; O2SAT 97
[2024-04-15 17:33] LABS: BACTERIA URINE TRACE; RBC URINE NONE SEEN /hpf (0-2); SQUAMOUS EPITHELIAL CELL URINE FEW /lpf (RARE/1+); YEAST URINE 1+
[2024-04-15 18:15] VITALS: BP 151/61; PULSE 67; RESP 15; TEMP 98
[2024-04-15] MEDS ORDERED: CEFP100T8 MT (19:30)
[2024-04-15] MEDS ORDERED: FLUCONAZOLE 100MG TABLET PO ONE (19:30)
[2024-04-15] MEDS: CEFTRIAXONE 1GM/50ML 50 ML IV ONE (19:55)
[2024-04-15] MEDS: FLUCONAZOLE 150MG TABLET PO NR (20:03)
== END 2024-04-15 19:30 | disposition home or self-care (01) ==
LOC: ER 14:45
DX: R51.9 Headache, unspecified (principal); F41.9 Anxiety disorder, unspecified; E78.5 Hyperlipidemia, unspecified; E11.9 Type 2 diabetes mellitus without complications; Z98.890 Other specified postprocedural states; Z79.899 Other long term (current) drug therapy; Z86.73 Personal history of transient ischemic attack (TIA), and cerebral infarction without residual deficits; Z79.84 Long term (current) use of oral hypoglycemic drugs
CPT/HCPCS: 80305; 80048; 81003; 80320; 85025; 85610; 36415; 71045; 70496; 70498; 70450; 93005; 96365; 99285; J0696; G0480